=== PATIENT | male | born 1960 | race Caucasian/White ===

== ENCOUNTER 2023-04-15 13:43 | Outpatient (CLI) | payer BC ==
[~2023-04-15 13:43] MED LIST: Iopamidol 370 76% 100 ML VIAL ONE
== END 2023-04-15 13:44 | disposition home or self-care (01) ==
LOC: CT 13:43
PROVIDERS: ATTEND Thoracic Surgery (Cardiothoracic Vascular Surgery)
DX: I70.212 Atherosclerosis of native arteries of extremities with intermittent claudication, left leg (principal); E27.9 Disorder of adrenal gland, unspecified; I70.8 Atherosclerosis of other arteries
CPT/HCPCS: 75635; Q9967

== ENCOUNTER 2023-04-30 08:32 | Outpatient (CLI) | payer BC ==
[2023-04-30 09:27] LABS: Hematocrit 43.1 % (38.8-50.0); Mean Corpuscular HGB CONC 34.8 g/dL (32.0-36.0); Mean Corpuscular Hemoglobin 32.6 pg (27.0-33.0); Mean Corpuscular Volume 93.7 fl (81.2-95.1); Mean Platelet Volume 10.6 fl (7.4-10.4); Platelet Count 205 10x3/uL (150-450); RBC Distribution Width 12.8 % (11.5-14.5); White Blood Cell (WBC) Count 8.3 10x3/uL (3.5-10.5)
[2023-04-30 10:02] LABS: Anion Gap 13 mmol/L (10-20); BUN (Urea Nitrogen) 14 mg/dL (8.4-25.7); Calc. Creatinine Clearance 0 mL/min (70-130); Calcium 9.4 mg/dL (7.8-10.44); Carbon Dioxide 24 mmol/L (23-31); Chloride 104 mmol/L (98-107); Estimated GFR 83; Glucose 108 mg/dL (80-115); Potassium 4.4 mmol/L (3.5-5.1); Sodium 137 mmol/L (136-145)
== END 2023-04-30 08:33 | disposition home or self-care (01) ==
LOC: LABBT 08:32
PROVIDERS: ATTEND Thoracic Surgery (Cardiothoracic Vascular Surgery)
DX: Z01.812 Encounter for preprocedural laboratory examination (principal); I73.9 Peripheral vascular disease, unspecified
CPT/HCPCS: 80048; 85027

== ENCOUNTER 2023-05-01 05:57 | Day surgery (SDC) | payer BC ==
[2023-04-30 09:23] VITALS: BMI 31.6
[2023-05-01] MEDS ORDERED: Lidocaine 1% (PF) 30 ML VIAL ONE (06:12)
[2023-05-01] MEDS ORDERED: Heparin 10,000 UNITS/ 10 ML VIAL ONE ×2 (06:12)
[2023-05-01] MEDS ORDERED: Midazolam HCl 2 mg/2 ml Vial ONE (06:42)
[2023-05-01] MEDS ORDERED: fentaNYL 50 mcg/mL 1 mL Vial ONE ×3 (06:42→10:26)
[2023-05-01] MEDS ORDERED: Protamine Sulfate 50 MG/5 ML VIAL ONE (08:23)
[2023-05-01] MEDS ORDERED: Clopidogrel Bisulfate 75 MG TAB ONE (08:28)
== END 2023-05-01 12:55 | disposition home or self-care (01) ==
LOC: SDC 05:57
PROVIDERS: ATTEND Thoracic Surgery (Cardiothoracic Vascular Surgery)
PROC: 047 Lower Arteries, Dilation (ICD-10-PCS; principal; 2023-05-01)
DX: I70.212 Atherosclerosis of native arteries of extremities with intermittent claudication, left leg (principal); E78.00 Pure hypercholesterolemia, unspecified; I11.0 Hypertensive heart disease with heart failure; I50.9 Heart failure, unspecified; Z87.891 Personal history of nicotine dependence; Z79.899 Other long term (current) drug therapy
CPT/HCPCS: 36246; 37221; 85347; C1725; C1769; C1887; C1894; J1644; J2001; J2250; J2720; J3010

== ENCOUNTER 2024-06-10 05:35 | Day surgery (SDC) | payer BC ==
[2024-06-09 10:32] VITALS: BMI 30.4
[2024-06-10] MEDS ORDERED: Heparin 10,000 UNITS/ 10 ML VIAL ONE (06:11)
[2024-06-10] MEDS ORDERED: fentaNYL 50 mcg/mL 1 mL Vial ONE ×3 (07:00→12:04)
[2024-06-10] MEDS ORDERED: Midazolam HCl 2 mg/2 ml Vial ONE (07:00)
[2024-06-10] MEDS ORDERED: Protamine Sulfate 50 MG/5 ML VIAL ONE (07:58)
[2024-06-10] MEDS ORDERED: Iopamidol 370 76% 100 ML VIAL ONE (09:06)
== END 2024-06-10 14:53 | disposition home or self-care (01) ==
LOC: SDC 05:35
PROVIDERS: ATTEND Student in an Organized Health Care Education/Training Program
PROC: 02703ZZ Dilation of Coronary Artery, One Artery, Percutaneous Approach (ICD-10-PCS; principal; 2024-06-10)
DX: T82.856A Stenosis of peripheral vascular stent, initial encounter (principal); I73.9 Peripheral vascular disease, unspecified; Y83.1 Surgical operation with implant of artificial internal device as the cause of abnormal reaction of the patient, or of later complication, without mention of misadventure at the time of the procedure
CPT/HCPCS: 36246; 37220; 85347; 99152; 99153; C1725; C1760; C1769; C1894; J1644; J2250; J2720; J3010